=== PATIENT | female | born 1960 | race Caucasian/White ===

== ENCOUNTER → 2024-01-17 07:57 | Outpatient (REF) | payer OTHER, SELFPAY | LOC: RAD 07:57 | PROVIDERS: ATTENDING PHYSICIAN Internal Medicine; FAMILY PHYSICIAN Family Medicine | DX: L40.50 Arthropathic psoriasis, unspecified (principal); M25.50 Pain in unspecified joint; M46.1 Sacroiliitis, not elsewhere classified; M54.9 Dorsalgia, unspecified; M25.561 Pain in right knee; G89.29 Other chronic pain | CPT/HCPCS: 72100; 72202; 73130; 73564; 73590 ==

== ENCOUNTER → 2024-01-29 10:07 | Outpatient (REF) | payer OTHER, SELFPAY | LOC: RAD 10:07 | PROVIDERS: ATTENDING PHYSICIAN Family Medicine | DX: M25.561 Pain in right knee (principal); G89.29 Other chronic pain | CPT/HCPCS: 76882 ==

== ENCOUNTER → 2024-04-28 16:17 | Outpatient (REF) | payer OTHER, SELFPAY | LOC: PAVMRI 16:17 | PROVIDERS: ATTENDING PHYSICIAN Orthopaedic Surgery; FAMILY PHYSICIAN Family Medicine | DX: M25.561 Pain in right knee (principal); M79.661 Pain in right lower leg | CPT/HCPCS: 73718 ==

== ENCOUNTER 2024-05-01 20:26 | Emergency (ER) | payer OTHER, SELFPAY ==
[2024-05-01 20:27] VITALS: BMI 23.8
[2024-05-01 20:34] VITALS: BP 123/78
--- NOTE | 2024-05-01 21:14 | ED.GENMED ---
History of Present Illness
General
Chief Complaint: Rectal Bleeding
Time Seen by Provider: 05/01/24 21:05
Travel History
Have you had any contact with someone who has COVID-19?: No
Do you have any symptoms of coronavirus? Fever > 100 degrees, chills, cough, shortness of breath, sore throat, loss of taste or smell, muscle aches, or headache?: No
History of Present Illness
History of Present Illness:
64-year-old female presents the emergency department for evaluation of fever, abdominal pain, and dark stools beginning yesterday. Fever was reportedly 103.9 Fahrenheit, she did take Tylenol last night for fever control. Fever has down trended
throughout the day today. She had multiple episodes of dark diarrhea yesterday however the stool has lightened in color today. She notes that she frequently uses NSAIDs for pain control and over the past 7 to 10 days has been taking full dose
aspirin due to a musculoskeletal issue. Denies any vomiting, chest pain, or shortness of breath. Does typically take PPIs on a daily basis but has not taken these for at least 2 weeks. No history of abdominal surgeries
Past History
Past History
ED Past Medical History: GERD, Hypercholesterolemia and Psychiatric (anxiety)
ED Past Surgical History: None
Social History
Tobacco: Non-smoker
Alcohol: Occasional
Personal:
Living: with family
Family History
Family History: Hypertension and Other
Review of Systems
Review of Systems
Allergies reviewed?: Yes
All Other Systems: ROS reviewed and negative except as documented in HPI and ROS
Phy Exam
Physical Exam
Physical Exam:
GEN: Well appearing, NAD, WDWN
HEENT: Oral mucosa moist, no scleral icterus
Cardiac: Regular rate and rhythm, no murmurs
Lung: No respiratory distress, no tachypnea, lungs clear to auscultation bilaterally
Abdomen: Soft, nontender, no rigidity
MSK: No gross deformity or injuries
Skin: Good color, no pallor or jaundice, no rashes
Neuro: AO x3, moves all extremities freely
Psych: Calm, cooperative
Course
Orders/Labs/Results
Orders:
Orders
05/01/24 21:12
0.9% Sodium Chloride 1000 ml [Nss] 1,000 ml IV BOLUS
Ondansetron Injectable [Zofran] 4 mg IV NOW STA
05/01/24 21:39
Complete Blood Count/With Diff Urgent
Comprehensive Metabolic Panel Urgent
Lipase Urgent
05/01/24 22:56
Dicyclomine HCl [Bentyl] 20 mg IM NOW STA
Abnormal Lab Results
05/01/24
21:39
MPV 12.3 H fL
(7.4-10.4)
Absolute Lymphs (auto) 0.7 L 10^3/uL
(1.2-3.4)
Neutrophils % 85.1 H %
(42.2-75.2)
Lymphocytes % 9.6 L %
(20.5-51.1)
BUN 24 H mg/dl
(7-17)
Glucose 125 H mg/dl
(70-99)
05/01/24 21:39
05/01/24 21:39
Vital Signs
Initial and Last Documented VS:
Initial Vital Signs
Temp Pulse Resp BP Pulse Ox
99.3 F 96 20 123/78 98
05/01/24 20:34 05/01/24 20:34 05/01/24 20:34 05/01/24 20:34 05/01/24 20:34
Last Documented Vital Signs
Temp Pulse Resp BP Pulse Ox
99.3 F 83 14 111/72 97
05/01/24 20:34 05/01/24 21:45 05/01/24 21:45 05/01/24 21:39 05/01/24 21:45
MDM/Problems Addressed
MDM/Problems Addressed:
Patient may have some degree of gastritis or mild upper GI bleeding provoked by frequent NSAID use particularly recent high-dose aspirin use however her hemoglobin is stable and she is not markedly uremic. Does sound as though her dark stool
improved today. There is no indication for admission for upper GI bleed, will start on PPIs and Carafate and recommend discontinuation of NSAIDs. I suspect that her symptoms were provoked by viral GI illness given the associated diarrhea as I
would not expect gastritis to cause diarrhea. Ultimately she has a benign abdominal exam and I do not see any indication for CT scan. She was given IV fluids and supportive treatment measures with improvement in symptoms. Discussed supportive
care and recommend outpatient GI follow-up
*Critical Care Note
Total Time (30-74mins, 75-104mins- exclusive of procedures): Not Applicable
ED Attending Note
-
Portions of this chart may have been created with voice recognition software.� Occasional wrong word or��sound alike� substitutions may have occurred due to the inherent limitations of voice recognition software.
Discharge Plan
Departure
Patient Disposition: Home (Routine Discharge)
Date of Disposition: 05/01/24
Time of Disposition: 23:35
Patient with high blood pressure during this ER visit?: No
Discharge Problem:
Gastritis
Instructions: Gastritis (DC)
Prescriptions:
New
pantoprazole 40 mg tablet,delayed release (DR/EC)
40 mg PO DAILY Qty: 10 0RF
sucralfate [Carafate] 1 gram tablet
1 g PO AC Qty: 30 0RF
No Action
rosuvastatin 10 MG tablet
10 mg PO HS
acetaminophen [Tylenol] 325 mg Tablet
650 mg PO Q6HPRN PRN (Reason: fever)
aspirin 325 mg Tablet
325 mg PO DAILYPRN PRN (Reason: mild pain)
aspirin 81 mg Tablet,Chewable
81 mg PO DAILY
nebivolol 2.5 mg Tablet
2.5 mg PO HS
Referrals:
Rajendra Johns MD [Active] -
Estevan Robertson DO [Family Provider] -
Interventions
Interventions:
*General Assessment Last Done: 05/01/24 21:45
*Neglect/Abuse Screening Last Done: 05/01/24 20:39
ED- Fall Risk Assessment Last Done: 05/01/24 21:49
*ED COVID-19 Vaccine History Last Done: 05/01/24 20:39
RU-Bpmdmz-Wojcaddvuj Assessment Last Done: 05/01/24 21:45
ED- Cardiac Assessment Last Done: 05/01/24 21:45
ED- Pulmonary Assessment Last Done: 05/01/24 21:45
Discharge Date and Time
Print Language: ESTONIAN
[2024-05-01] MEDS: NSS 1000 IV (21:31)
[2024-05-01] MEDS: ZOFRAN 4 MG IV (21:33)
[2024-05-01 21:39] VITALS: BP 111/72
[2024-05-01 21:44] LABS: % Basophils 0.1 % (0-2); % Immature Granulocytes 0.4 % (0-0.5); % Lymphocytes 9.6 % (20.5-51.1); % Monocytes 4.8 % (1.7-9.3); % Neutrophils 85.1 % (42.2-75.2); Absolute Lymphocytes 0.7 10^3/uL (1.2-3.4); Absolute Monocytes 0.4 10^3/uL (0.1-0.6); Absolute Neutrophils 6.4 10^3/uL (1.4-6.5); Hematocrit 42.2 % (37.0-47.0); Hemoglobin 14.2 g/dL (12.0-16.0); Mean Corp Hgb Conc. 33.6 g/dL (33.0-37.0); Mean Corpuscular Hgb 30.7 pg (27.0-31.0); Mean Corpuscular Volume 91.3 fL (81.0-99.0); Mean Platelet Volume 12.3 fL (7.4-10.4); Nucleated Red Blood Cells % 0 %; Platelet Count 152 10^3/uL (130-400); Red Blood Cell Count 4.62 10^6/uL (4.20-5.40); Red Cell Dist. Width 11.8 % (11.5-14.5); White Blood Cell Count 7.5 10^3/uL (4.8-10.8)
[2024-05-01 22:00] VITALS: BP 120/77
[2024-05-01 22:19] LABS: ALT (SGPT) 19 U/L (0-35); AST (SGOT) 29 U/L (14-36); Albumin 4.9 g/dl (3.5-5.0); Alkaline Phosphatase 93 U/L (38-126); Blood Urea Nitrogen 24 mg/dl (7-17); Calcium 9.9 mg/dl (8.4-10.2); Carbon Dioxide 26 mmol/L (22-30); Chloride 100 mmol/L (98-107); Estimated Creatinine Clearance 87 ml/min; Glucose 125 mg/dl (70-99); Lipase 34 U/L (23-300); Potassium 3.9 mmol/L (3.5-5.1); Sodium 137 mmol/L (135-145); Total Bilirubin 0.5 mg/dl (0.2-1.3); eGFR > 60.00
[2024-05-01 23:00] VITALS: BP 133/122
[2024-05-01] MEDS: BENTYL 20 MG IM (23:11)
== END 2024-05-01 23:59 | disposition home or self-care (01) ==
LOC: EMR 20:26
PROVIDERS: Physician Assistant; EMERGENCY PHYSICIAN Emergency Medicine; FAMILY PHYSICIAN Family Medicine
DX: K29.70 Gastritis, unspecified, without bleeding (principal)
CPT/HCPCS: 99284; 96372; 96374; 96361 ×2; 80053; 83690; 85025

== ENCOUNTER → 2024-06-04 06:41 | Day surgery (SDC) | payer OTHER, SELFPAY | LOC: GI 06:41 | PROVIDERS: ATTENDING PHYSICIAN Specialist | DX: R10.13 Epigastric pain (principal); R13.10 Dysphagia, unspecified; R05.3 Chronic cough; K44.9 Diaphragmatic hernia without obstruction or gangrene; K31.7 Polyp of stomach and duodenum; K22.89 Other specified disease of esophagus; K29.50 Unspecified chronic gastritis without bleeding | CPT/HCPCS: 43239; 88305; 88342 ==

== ENCOUNTER → 2024-08-14 06:15 | Day surgery (SDC) | payer OTHER, SELFPAY | LOC: GI 06:15 | PROVIDERS: ATTENDING PHYSICIAN Specialist | DX: A09 Infectious gastroenteritis and colitis, unspecified (principal); K57.30 Diverticulosis of large intestine without perforation or abscess without bleeding | CPT/HCPCS: 45380; 88305 ==

== ENCOUNTER → 2024-12-11 07:25 | Outpatient (REF) | payer OTHER, SELFPAY | LOC: MRI 3T 07:25 | PROVIDERS: ATTENDING PHYSICIAN Family Medicine | DX: D33.3 Benign neoplasm of cranial nerves (principal) | CPT/HCPCS: 70553; A9575 ==

== ENCOUNTER 2024-12-24 07:39 | Emergency (ER) | payer OTHER, SELFPAY ==
[2024-12-24 07:39] VITALS: BMI 25.4
[2024-12-24 07:59] VITALS: BP 126/79
[2024-12-24 08:19] LABS: % Basophils 0.4 % (0-2); % Immature Granulocytes 0.5 % (0-0.5); % Lymphocytes 19.3 % (20.5-51.1); % Monocytes 4.8 % (1.7-9.3); Absolute Lymphocytes 1.4 10^3/uL (1.2-3.4); Absolute Monocytes 0.4 10^3/uL (0.1-0.6); Absolute Neutrophils 5.5 10^3/uL (1.4-6.5); Hematocrit 41.3 % (37.0-47.0); Hemoglobin 14.2 g/dL (12.0-16.0); Mean Corp Hgb Conc. 34.4 g/dL (33.0-37.0); Mean Corpuscular Hgb 31.2 pg (27.0-31.0); Mean Corpuscular Volume 90.8 fL (81.0-99.0); Nucleated Red Blood Cells % 0 %; Platelet Count 168 10^3/uL (130-400); Red Blood Cell Count 4.55 10^6/uL (4.20-5.40); Red Cell Dist. Width 11.4 % (11.5-14.5); White Blood Cell Count 7.4 10^3/uL (4.8-10.8)
[2024-12-24 08:28] LABS: ALT (SGPT) 22 U/L (0-35); AST (SGOT) 28 U/L (14-36); Alkaline Phosphatase 102 U/L (38-126); Blood Urea Nitrogen 24 mg/dl (7-17); Calcium 9.3 mg/dl (8.4-10.2); Carbon Dioxide 23 mmol/L (22-30); Chloride 104 mmol/L (98-107); Glucose 123 mg/dl (70-99); Potassium 4.3 mmol/L (3.5-5.1); Sodium 140 mmol/L (135-145); Total Bilirubin 0.6 mg/dl (0.2-1.3); Total Protein 7.9 g/dl (6.3-8.2); eGFR > 60.00
[2024-12-24 08:39] LABS: Troponin I < 0.012 ng/ml
--- NOTE | 2024-12-24 09:56 | ED.GENMED ---
History of Present Illness
General
Chief Complaint: Chest Pain
Source: patient
Time Seen by Provider: 12/24/24 09:41
History of Present Illness
History of Present Illness:
64-year-old female presents to the emergency room complaining of multiple things. Primarily she is concerned about chest discomfort that she has been experiencing intermittently for the past couple weeks. The pain exists in her chest and sometimes
she has numbness in her left arm. When she has an episode it last for about 30 seconds. Episodes do not seem to be related to exertion or activity. She also has been experiencing a cough for the past several months. She did take a course of
Zithromax given by her primary care provider which did not help. Patient feels fatigued and malaise. This has been present for the past couple months.
Past History
Past History
ED Past Medical History: GERD, Hypercholesterolemia and Psychiatric (anxiety)
ED Past Surgical History: None
Social History
Tobacco: Non-smoker
Alcohol: Occasional
Personal:
Living: with family
Family History
Family History: Hypertension and Other
Phy Exam
Physical Exam
Physical Exam:
General: Awake, Alert, Oriented X3. No acute distress.
Vitals: unremarkable
Head: Atraumatic
Eyes: Pupils equal, EOMI
Throat: Airway intact, no exudates
Neck: Trachea midline
Lungs: Clear and equal b/l
Heart: Regular rate, no murmurs
Abd: Soft, Nontender, No pulsatile mass
Neuro: Nonfocal
Skin: Warm, dry, no rash
Extremities: pulses equal b/l, no edema
Scores
Heart Score for Chest Pain Patients
STEMI patient?: No
History: Slightly or Non-Suspicious
ECG: Normal
Age: >45 - <65 years
Risk Factors: 1 or 2 Risk Factors
Troponin: </= Normal Limit
Heart Score for Chest Pain Patients: 2
Heart Score Risk: 2.5% MACE over next 6 weeks
Course
Orders/Labs/Results
Orders:
Orders
12/24/24 07:40
Electrocardiogram (*1) Urgent
Reason for Study: Chest Pain
EKG- Treatment ONCE
12/24/24 08:09
Complete Blood Count/With Diff Urgent
Comprehensive Metabolic Panel Urgent
TSH Reflex To Free T4 Urgent
Comment: ADD ON
Troponin I Urgent
12/24/24 09:54
Add On- LAB Urgent
Tests Added?: TSH reflex T4
CR Chest - 2 Views Urgent
Comment:
Reason For Exam: chest pain, cough
12/24/24 10:01
Urinalysis Reflex To Culture Urgent
Date Specimen was Collected: 12/24/24
Time Specimen was Collected: 09:59
Urine Microscopic Reflex Cult Urgent
Abnormal Lab Results
12/24/24 12/24/24
08:09 10:01
MCH 31.2 H pg
(27.0-31.0)
RDW 11.4 L %
(11.5-14.5)
MPV 12.0 H fL
(7.4-10.4)
Lymphocytes % 19.3 L %
(20.5-51.1)
BUN 24 H mg/dl
(7-17)
Glucose 123 H mg/dl
(70-99)
Ur Occult Blood Reflex 2+ A
(Negative)
Urine Bacteria (Reflex) Few A
(Negative)
12/24/24 08:09
12/24/24 08:09
Vital Signs
Initial and Last Documented VS:
Initial Vital Signs
Temp Pulse Resp BP Pulse Ox
98.1 F 71 18 126/79 100
12/24/24 07:59 12/24/24 07:59 12/24/24 07:59 12/24/24 07:59 12/24/24 07:59
Last Documented Vital Signs
Temp Pulse Resp BP Pulse Ox
98.1 F 65 13 113/76 97
12/24/24 07:59 12/24/24 12:30 12/24/24 12:30 12/24/24 12:00 12/24/24 12:30
MDM/Problems Addressed
Differential Diagnosis Includes:
acs, chest wall pain, bronchospasm,
MDM/Problems Addressed:
Patient presents with chest pain that is been intermittent but has been occurring for weeks. The discomfort that she has now has been present for hours. Troponins normal. Chest x-ray is unremarkable. EKG shows no acute ischemic changes. Patient
stable for discharge home and follow-up with cardiology outpatient. Patient asked at discharge if anxiety or stress could be a contributing factor to this. I have explained that this certainly possible but she should still follow-up with
cardiology to finish her workup
*Radiology
Radiology exam reviewed: preliminary read by ED provider (No acute abnormalities on my review of the patient's chest x-ray) and radiology read reviewed
*Pulse Oximetry
Patient hypoxic: no
*EKG
Interpreted by ED Provider?: Yes
Heart Rate: 72
Rate: normal
Rhythm: sinus
[place]: normal axis
Interval: normal interval
QRS Pattern: normal QRS
Ischemia: no ischemia
*Screen Writer Interpretation
Rate: normal
Interpretation: normal
Rhythm: sinus
*Critical Care Note
Total Time (30-74mins, 75-104mins- exclusive of procedures): Not Applicable
ED Attending Note
-
Portions of this chart may have been created with voice recognition software.� Occasional wrong word or��sound alike� substitutions may have occurred due to the inherent limitations of voice recognition software.
Discharge Plan
Departure
Patient Disposition: Home (Routine Discharge)
Date of Disposition: 12/24/24
Time of Disposition: 12:43
Patient with high blood pressure during this ER visit?: No
Condition: Good
Discharge Problem:
Chest pain
Instructions: Chest Pain DCA Follow Up
Prescriptions:
No Action
rosuvastatin 10 MG tablet
10 mg PO HS
nebivolol 2.5 mg Tablet
2.5 mg PO HS
Referrals:
Estevan Robertson, [Family Provider] -
Interventions
Interventions:
*Risk Screen - Suicide Last Done: 12/24/24 08:02
*Neglect/Abuse Screening Last Done: 12/24/24 08:02
ED- Fall Risk Assessment Last Done: 12/24/24 10:29
*ED COVID-19 Vaccine History Last Done: 12/24/24 10:28
*Nursing Disposition Last Done: 12/24/24 13:13
ED- Cardiac Assessment Last Done: 12/24/24 10:29
Discharge Date and Time
Discharge Date/Time: 12/24/24 13:13
Print Language: [id number]
[2024-12-24 10:21] VITALS: BP 114/72
[2024-12-24 10:36] LABS: Urine Albumin Negative (Neg - Trace); Urine Bilirubin Negative (Negative); Urine Character Clear (Clear); Urine Color Yellow; Urine Glucose Negative (Negative); Urine Ketone Negative (Negative); Urine Leukocyte Negative (Negative); Urine Nitrite Negative (Negative); Urine Occult Blood 2+ (Negative); Urine Specific Gravity 1.015 (<1.030); Urine Urobilinogen Negative (Neg - 1+)
[2024-12-24 11:00] VITALS: BP 116/77
[2024-12-24 11:21] LABS: Urine Bacteria Few (Negative); Urine Red Blood Cell 0-2 /HPF (0-2); Urine Squamous Cell 0-2 /LPF (Few); Urine White Cell 0-2 /HPF (0-5)
[2024-12-24 12:00] VITALS: BP 113/76
[2024-12-24 12:00] LABS: TSH Reflex To Free T4 3.31 uIU/ml (0.47-4.68)
== END 2024-12-24 13:13 | disposition home or self-care (01) ==
LOC: EMR 07:39
PROVIDERS: Emergency Medicine; EMERGENCY PHYSICIAN Emergency Medicine; FAMILY PHYSICIAN Family Medicine
DX: R07.9 Chest pain, unspecified (principal); E78.00 Pure hypercholesterolemia, unspecified; K21.9 Gastro-esophageal reflux disease without esophagitis
CPT/HCPCS: 99285; 71046; 80053; 81003; 81015; 84443; 84484; 85025; 93005

== ENCOUNTER → 2025-01-21 10:22 | Outpatient (REF) | payer OTHER, SELFPAY | LOC: RCS 10:22 | PROVIDERS: ATTENDING PHYSICIAN Nurse Practitioner; FAMILY PHYSICIAN Family Medicine | DX: R06.02 Shortness of breath (principal); R07.89 Other chest pain | CPT/HCPCS: 93017 ==

== ENCOUNTER → 2025-01-22 07:06 | Outpatient (REF) | payer OTHER, SELFPAY | LOC: RCS 07:06 | PROVIDERS: ATTENDING PHYSICIAN Nurse Practitioner; FAMILY PHYSICIAN Family Medicine | DX: R06.02 Shortness of breath (principal) | CPT/HCPCS: 93306 ==

== ENCOUNTER → 2025-01-28 09:45 | Outpatient (REF) | payer OTHER, SELFPAY | LOC: RCS 09:45 | PROVIDERS: ATTENDING PHYSICIAN Internal Medicine Cardiovascular Disease; FAMILY PHYSICIAN Family Medicine | DX: R94.39 Abnormal result of other cardiovascular function study (principal) | CPT/HCPCS: 93017; 93350 ==

== ENCOUNTER → 2025-06-01 12:06 | Outpatient (REF) | payer OTHER, SELFPAY | LOC: RAD 12:06 | PROVIDERS: ATTENDING PHYSICIAN Family Medicine | DX: M25.511 Pain in right shoulder (principal) | CPT/HCPCS: 73030 ==

== ENCOUNTER 2025-07-21 16:56 | Outpatient (RCR) | payer OTHER, SELFPAY | END 2025-07-21 23:59 | disposition home or self-care (01) | LOC: RPT 16:56 | PROVIDERS: ATTENDING PHYSICIAN Orthopaedic Surgery; FAMILY PHYSICIAN Family Medicine | DX: M75.01 Adhesive capsulitis of right shoulder (principal); Z73.6 Limitation of activities due to disability; M62.81 Muscle weakness (generalized) | CPT/HCPCS: 97010; 97110; 97140; 97162 ==

== ENCOUNTER 2025-08-18 17:15 | Outpatient (RCR) | payer OTHER, SELFPAY | END 2025-08-18 23:59 | disposition home or self-care (01) | LOC: RPT 17:15 | PROVIDERS: ATTENDING PHYSICIAN Orthopaedic Surgery; FAMILY PHYSICIAN Family Medicine | DX: M75.01 Adhesive capsulitis of right shoulder (principal); Z73.6 Limitation of activities due to disability; M62.81 Muscle weakness (generalized) | CPT/HCPCS: 97010; 97110; 97140 ==

== ENCOUNTER 2025-08-25 16:59 | Outpatient (RCR) | payer OTHER, SELFPAY | END 2025-08-25 23:59 | disposition home or self-care (01) | LOC: RPT 16:59 | PROVIDERS: ATTENDING PHYSICIAN Orthopaedic Surgery; FAMILY PHYSICIAN Family Medicine | DX: M75.01 Adhesive capsulitis of right shoulder (principal); Z73.6 Limitation of activities due to disability; M62.81 Muscle weakness (generalized) | CPT/HCPCS: 97010; 97110; 97140 ==

== ENCOUNTER → 2025-10-12 17:08 | Outpatient (REF) | payer OTHER, SELFPAY | LOC: WDC 17:08 | PROVIDERS: ATTENDING PHYSICIAN Family Medicine | DX: Z12.31 Encounter for screening mammogram for malignant neoplasm of breast (principal); Z12.39 Encounter for other screening for malignant neoplasm of breast | CPT/HCPCS: 77063; 77067 ==

== ENCOUNTER → 2025-10-15 08:28 | Outpatient (REF) | payer OTHER, SELFPAY | LOC: RAD 08:28 | PROVIDERS: ATTENDING PHYSICIAN Family Medicine | DX: M85.80 Other specified disorders of bone density and structure, unspecified site (principal); Z12.39 Encounter for other screening for malignant neoplasm of breast | CPT/HCPCS: 77080 ==